=== PATIENT | female | born 1955 | race African-American/Black ===

== ENCOUNTER 2019-11-12 13:07 | Inpatient (IN) | payer OTHER ==
[2019-11-12 15:34] VITALS: BMI 26.5
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
[2019-11-12] MEDS ORDERED: MAGNESIUM HYDROX 2400MG/30ML ORAL SUSPENSION 30 ML CUP PO PRN (16:27)
[2019-11-12] MEDS ORDERED: MAG HYDROX/AL HYDROX/SIMETH 30 ML UNIT-DOSE CUP PO PRN (16:27)
[2019-11-12] MEDS ORDERED: BISMUTH SUBSALICYLATE 524 MG/30 ML UD PO PRN (16:27)
[2019-11-12] MEDS ORDERED: ONDANSETRON *ODT* 4 MG TABLET SL PRN (16:27)
[2019-11-12] MEDS ORDERED: MAGNESIUM CITRATE 300 ML BOTTLE PO PRN (16:27)
[2019-11-12] MEDS ORDERED: ACETAMINOPHEN 325 MG TABLET (FP) PO PRN (16:27)
[2019-11-12] MEDS ORDERED: MENTHOL/PHENOL 1 EACH UD MM PRN (16:27)
[2019-11-12] MEDS ORDERED: clonazePAM 0.5 MG TABLET PO PRN (16:29)
[2019-11-12] MEDS ORDERED: cloNIDine HCL 0.1 MG TABLET PO PRN (16:29)
[2019-11-13] MEDS: THIAMINE HCL 100 MG TABLET (FP) PO SCH ×2 (03:36→22:06)
[2019-11-13] MEDS: ACETAMINOPHEN 325 MG TABLET (FP) PO PRN ×2 (03:47→22:07)
--- NOTE | 2019-11-13 10:03 | PN ---
BHS COWS - Scale Resting Pulse: 2= [place] 101-120 Sweatin= Chills/Flushing Restless Observation: 0= Sits Still Pupil Size: 1= Pupils >than Normal Bone or Joint Aches: 0= None Runny Nose/ Eye Tearin= None GI Upset > 30mins: 0= None Tremor Observation of Outstretched Hands: 2= Slight Tremor Visible Yawning Observation: 0= None Anxiety or Irritability: 2=Irritable/Anxious Goose Flesh Skin: 3=Piloerection COWS Score: 11 BHS Progress Note (SOAP) Subjective: 64 years old female admitted on 11/12/19 for opiate withdrawal sx requests methadone detox regiment and prefers in patient rehab after the detox patient is anxious with pupil dilation begin methadone detox regiment discontinue klonopin continue clonidine prn Objective: 11/13/19 10:14 Vital Signs Temperature 97.9 F 11/13/19 08:39 Pulse Rate 101 H 11/13/19 08:39 Respiratory Rate 20 11/13/19 08:39 Blood Pressure 136/79 11/13/19 08:39 O2 Sat by Pulse Oximetry (%) 11/13/19 10:14 lab pending Assessment: 11/13/19 10:14 opiate withdrawal Plan: methadone regiment with clonidine 0.1mg prn
[2019-11-13] MEDS: NICOTINE 7 MG/24 HOURS TOPICAL PATCH TD SCH (10:12)
[2019-11-13] MEDS: METHOCARBAMOL 500 MG TABLET PO PRN ×2 (10:12→17:52)
[2019-11-13] MEDS: PRENATAL VITAMINS W/ FOLIC ACID TABLET (FP) PO SCH (10:12)
[2019-11-13 10:16] LABS: HEMATOCRIT 36.8 % (32.4-45.2); HEMOGLOBIN 12.5 GM/dL (10.7-15.3); MCHC 33.9 g/dl (32.0-36.0); MEAN CELL VOLUME 88.5 fl (80-96); MEAN PLT VOLUME 7.7 fl (7.5-11.1); PLATELET COUNT 293 K/MM3 (134-434); RBC 4.16 M/mm3 (3.60-5.2); RDW 14.1 % (11.6-15.6); WHITE BLOOD COUNT 5.9 K/mm3 (4.0-10.0)
[2019-11-13 10:24] LABS: ALBUMIN 3.9 g/dl (3.4-5.0); BILIRUBIN,TOTAL 0.5 mg/dL (0.2-1); BLOOD UREA NITROGEN 7.3 mg/dL (7-18); CALCIUM 9.2 mg/dL (8.5-10.1); CREATININE 0.6 mg/dL (0.55-1.3); POTASSIUM 4.2 mmol/L (3.5-5.1); TOT PROT 7.2 g/dl (6.4-8.2)
[2019-11-13] MEDS ORDERED: METHADONE HCL 10 MG TABLET (FOR DETOX USE ONLY) PO ONE (11:30)
--- NOTE | 2019-11-13 12:43 | EKG ---
Test Reason : Blood Pressure : / mmHG Vent. Rate : 090 BPM Atrial Rate : 090 BPM P-R Int : 176 ms QRS Dur : 098 ms QT Int : 366 ms P-R-T Axes : 075 051 065 degrees QTc Int : 447 ms NORMAL SINUS RHYTHM INCOMPLETE RIGHT BUNDLE BRANCH BLOCK NONSPECIFIC T WAVE ABNORMALITY ABNORMAL ECG NO PREVIOUS ECGS AVAILABLE Confirmed by SARA BONE MD (2013) on 11/13/2019 12:42:59 PM Referred By: JENNA Confirmed By:SARA BONE MD
[2019-11-13] MEDS: hydrOXYzine PAMOATE 25 MG CAPSULE (FP) PO PRN (17:50)
[2019-11-13] MEDS: NAPROXEN 375 MG TABLET PO PRN (20:33)
[2019-11-13] MEDS: MELATONIN 5 MG TABLETS PO PRN (22:06)
[2019-11-14] MEDS ORDERED: METHADONE HCL 10 MG TABLET (FOR DETOX USE ONLY) ONE (09:39)
[2019-11-14] MEDS ORDERED: METHADONE HCL 5 MG TABLET (FOR DETOX USE ONLY) ONE (09:40)
[2019-11-14] MEDS: NAPROXEN 375 MG TABLET PO PRN (09:58)
[2019-11-14] MEDS: PRENATAL VITAMINS W/ FOLIC ACID TABLET (FP) PO SCH (09:58)
[2019-11-14] MEDS: METHOCARBAMOL 500 MG TABLET PO PRN ×2 (09:59→22:00)
[2019-11-14] MEDS: NICOTINE 7 MG/24 HOURS TOPICAL PATCH TD SCH (09:59)
[2019-11-14] MEDS ORDERED: METHADONE (DETOX) 10 MG, METHADONE (DETOX) 5 MG PO ONE (10:00)
--- NOTE | 2019-11-14 12:13 | PN ---
S COWS - Scale Resting Pulse: 2= [place] 101-120 Sweatin= No chills or Flushing Restless Observation: 1= Difficult to Sit Still Pupil Size: 0= Normal to Room Light Bone or Joint Aches: 4=Acute Joint/Muscle Pain Runny Nose/ Eye Tearin= Nasal Congestion GI Upset > 30mins: 1= Stomach Cramp Tremor Observation of Outstretched Hands: 1= Tremor [place], Not Seen Yawning Observation: 0= None Anxiety or Irritability: 0= None Goose Flesh Skin: 0=Smooth Skin COWS Score: 10 S Progress Note (SOAP) Subjective: Vitals: BP: 120/81 P;108 R:18 T:97.0 Laboratory 11/13/19 11/13/19 11/13/19 08:00 08:00 08:00 WBC 5.9 K/mm3 K/mm3 (4.0-10.0) RBC 4.16 M/mm3 M/mm3 (3.60-5.2) Hgb 12.5 GM/dL GM/dL (10.7-15.3) Hct 36.8 % % (32.4-45.2) MCV 88.5 fl fl (80-96) MCH 30.0 pg pg (25.7-33.7) MCHC 33.9 g/dl g/dl (32.0-36.0) RDW 14.1 % % (11.6-15.6) Plt Count 293 K/MM3 K/MM3 (134-434) MPV 7.7 fl fl (7.5-11.1) Sodium 140 mmol/L mmol/L (136-145) Potassium 4.2 mmol/L mmol/L (3.5-5.1) Chloride 108 mmol/L H mmol/L (98-107) Carbon Dioxide 27 mmol/L mmol/L (21-32) Anion Gap 4 MMOL/L L MMOL/L (8-16) BUN 7.3 mg/dL mg/dL (7-18) Creatinine 0.6 mg/dL mg/dL (0.55-1.3) Est GFR (CKD-EPI)AfAm 112.43 Est GFR (CKD-EPI)NonAf 97.01 Random Glucose 88 mg/dL mg/dL (74-106) Calcium 9.2 mg/dL mg/dL (8.5-10.1) Total Bilirubin 0.5 mg/dL mg/dL (0.2-1) AST 19 U/L U/L (15-37) ALT 26 U/L U/L (13-61) Alkaline Phosphatase 70 U/L U/L (45-117) Total Protein 7.2 g/dl g/dl (6.4-8.2) Albumin 3.9 g/dl g/dl (3.4-5.0) RPR Titer Nonreactive (NONREACTIVE) Objective: 11/14/19 12:12 Patient seen in bed sleepy some continued withdrawals symptoms elicited. Assessment: 11/14/19 12:12 1. Heroin Dependence with withdrawals 2. Abnormal labs noted 11/14/19 12:15 Plan: 1. Continue methadone detox protocol. 2. Abnormal labs consistent with poor nutrition and dehydration. Will encourage po hydration and proper nutrition. Add ensure to meals. Dr. Hawkins
[2019-11-14] MEDS: THIAMINE HCL 100 MG TABLET (FP) PO SCH (22:00)
[2019-11-14] MEDS: hydrOXYzine PAMOATE 25 MG CAPSULE (FP) PO PRN (22:01)
[2019-11-14] MEDS: MELATONIN 5 MG TABLETS PO PRN (22:01)
[2019-11-15] MEDS ORDERED: METHADONE HCL 10 MG TABLET (FOR DETOX USE ONLY) PO ONE (10:00)
[2019-11-15] MEDS: PRENATAL VITAMINS W/ FOLIC ACID TABLET (FP) PO SCH (10:26)
[2019-11-15] MEDS: NICOTINE 7 MG/24 HOURS TOPICAL PATCH TD SCH (10:28)
--- NOTE | 2019-11-15 13:19 | PN ---
BHS COWS - Scale Resting Pulse: 1= [place] 81-100 Sweatin= No chills or Flushing Restless Observation: 0= Sits Still Pupil Size: 0= Normal to Room Light Bone or Joint Aches: 2= Severe Diffuse Aches Runny Nose/ Eye Tearin= None GI Upset > 30mins: 0= None Tremor Observation of Outstretched Hands: 0= None Yawning Observation: 0= None Anxiety or Irritability: 2=Irritable/Anxious Goose Flesh Skin: 0=Smooth Skin COWS Score: 5 BHS Progress Note (SOAP) Subjective: c/o mild withdrawal symptoms. Objective: 11/15/19 13:17 Vital Signs 11/15/19 11/15/19 06:55 08:49 Temperature 98.1 F 98.4 F Pulse Rate 90 109 H Respiratory 18 16 Rate Blood Pressure 116/76 125/72 Laboratory Last Values WBC 5.9 K/mm3 (4.0-10.0) 11/13/19 08:00 RBC 4.16 M/mm3 (3.60-5.2) 11/13/19 08:00 Hgb 12.5 GM/dL (10.7-15.3) 11/13/19 08:00 Hct 36.8 % (32.4-45.2) 11/13/19 08:00 MCV 88.5 fl (80-96) 11/13/19 08:00 MCH 30.0 pg (25.7-33.7) 11/13/19 08:00 MCHC 33.9 g/dl (32.0-36.0) 11/13/19 08:00 RDW 14.1 % (11.6-15.6) 11/13/19 08:00 Plt Count 293 K/MM3 (134-434) 11/13/19 08:00 MPV 7.7 fl (7.5-11.1) 11/13/19 08:00 Sodium 140 mmol/L (136-145) 11/13/19 08:00 Potassium 4.2 mmol/L (3.5-5.1) 11/13/19 08:00 Chloride 108 mmol/L (98-107) H 11/13/19 08:00 Carbon Dioxide 27 mmol/L (21-32) 11/13/19 08:00 Anion Gap 4 MMOL/L (8-16) L 11/13/19 08:00 BUN 7.3 mg/dL (7-18) 11/13/19 08:00 Creatinine 0.6 mg/dL (0.55-1.3) 11/13/19 08:00 Est GFR (CKD-EPI)AfAm 112.43 11/13/19 08:00 Est GFR (CKD-EPI)NonAf 97.01 11/13/19 08:00 Random Glucose 88 mg/dL (74-106) 11/13/19 08:00 Calcium 9.2 mg/dL (8.5-10.1) 11/13/19 08:00 Total Bilirubin 0.5 mg/dL (0.2-1) 11/13/19 08:00 AST 19 U/L (15-37) 11/13/19 08:00 ALT 26 U/L (13-61) 11/13/19 08:00 Alkaline Phosphatase 70 U/L (45-117) 11/13/19 08:00 Total Protein 7.2 g/dl (6.4-8.2) 11/13/19 08:00 Albumin 3.9 g/dl (3.4-5.0) 11/13/19 08:00 RPR Titer Nonreactive (NONREACTIVE) 11/13/19 08:00 Labs noted. Assessment: 11/15/19 13:18 AOX3, in no acute respiratory distress. Full ROM, ambulating in the unit. Mild Withdrawal symptoms. For d/c tomorrow. Plan: continue detox. D/c in AM.
[2019-11-15] MEDS: NAPROXEN 375 MG TABLET PO PRN ×2 (13:44→20:33)
[2019-11-15] MEDS: METHOCARBAMOL 500 MG TABLET PO PRN (20:34)
[2019-11-15] MEDS: MELATONIN 5 MG TABLETS PO PRN (22:25)
[2019-11-15] MEDS: THIAMINE HCL 100 MG TABLET (FP) PO SCH (22:25)
[2019-11-15] MEDS: ACETAMINOPHEN 325 MG TABLET (FP) PO PRN (22:26)
[2019-11-16] MEDS ORDERED: METHADONE HCL 5 MG TABLET (FOR DETOX USE ONLY) PO ONE (05:00)
[2019-11-16 06:35] VITALS: BP 105/68; PULSE 86; TEMP 98.1
--- NOTE | 2019-11-16 09:41 | DS ---
[facility] Detox Discharge Summary Admission Date: 11/12/19 Discharge Date: 11/16/19 - History Present History: Opioid Dependence Additional Comments: 64 years old female admitted on 11/12/19 for opiate withdrawal sx management [facility] patient has completed the detox regiment and tolerated well alert oriented x 3 cardiac regular rate rhythm history of right bundle branch block as indicated in ekg patient is asymptomatic at this time no chest pain no shortness of breath no dizziness ambulating with walker steady and slow respiratory clear lungs bilaterally on auscultation skin warm and dry - Physical Exam Results Vital Signs: Vital Signs Temperature 98.1 F 11/16/19 06:34 Pulse Rate 86 11/16/19 06:34 Respiratory Rate 16 11/16/19 06:34 Blood Pressure 105/68 11/16/19 06:34 O2 Sat by Pulse Oximetry (%) Pertinent Admission Physical Exam Findings: opiate withdrawal Laboratory Last Values WBC 5.9 K/mm3 (4.0-10.0) 11/13/19 08:00 RBC 4.16 M/mm3 (3.60-5.2) 11/13/19 08:00 Hgb 12.5 GM/dL (10.7-15.3) 11/13/19 08:00 Hct 36.8 % (32.4-45.2) 11/13/19 08:00 MCV 88.5 fl (80-96) 11/13/19 08:00 MCH 30.0 pg (25.7-33.7) 11/13/19 08:00 MCHC 33.9 g/dl (32.0-36.0) 11/13/19 08:00 RDW 14.1 % (11.6-15.6) 11/13/19 08:00 Plt Count 293 K/MM3 (134-434) 11/13/19 08:00 MPV 7.7 fl (7.5-11.1) 11/13/19 08:00 Sodium 140 mmol/L (136-145) 11/13/19 08:00 Potassium 4.2 mmol/L (3.5-5.1) 11/13/19 08:00 Chloride 108 mmol/L (98-107) H 11/13/19 08:00 Carbon Dioxide 27 mmol/L (21-32) 11/13/19 08:00 Anion Gap 4 MMOL/L (8-16) L 11/13/19 08:00 BUN 7.3 mg/dL (7-18) 11/13/19 08:00 Creatinine 0.6 mg/dL (0.55-1.3) 11/13/19 08:00 Est GFR (CKD-EPI)AfAm 112.43 11/13/19 08:00 Est GFR (CKD-EPI)NonAf 97.01 11/13/19 08:00 Random Glucose 88 mg/dL (74-106) 11/13/19 08:00 Calcium 9.2 mg/dL (8.5-10.1) 11/13/19 08:00 Total Bilirubin 0.5 mg/dL (0.2-1) 11/13/19 08:00 AST 19 U/L (15-37) 11/13/19 08:00 ALT 26 U/L (13-61) 11/13/19 08:00 Alkaline Phosphatase 70 U/L (45-117) 11/13/19 08:00 Total Protein 7.2 g/dl (6.4-8.2) 11/13/19 08:00 Albumin 3.9 g/dl (3.4-5.0) 11/13/19 08:00 RPR Titer Nonreactive (NONREACTIVE) 11/13/19 08:00 lab noted - Treatment Hospital Course: Detox Protocol Followed, Detoxed Safely, Responded well, Discharged Condition Good, Rehab Referral Accepted Patient has Accepted [facility] - Medication Discharge Medications: Ambulatory Orders Cyclobenzaprine HCl 10 mg PO BID PRN 11/12/19 Naproxen [Naprosyn -] 375 mg PO TID PRN 11/12/19 Oxycodone HCl/Acetaminophen [Percocet 10-325 mg Tablet] 1 each PO TID 11/12/19 - Diagnosis (1) Walker as ambulation aid Status: Chronic (2) Opioid use disorder Status: Chronic - AMA Did Patient Leave Against Medical Advice: No COWS (PN) - Opiate Withdrawal Resting Pulse: 1= PA 81-100 Sweatin= No chills or Flushing Restless Observation: 0= Sits Still Pupil Size: 0= Normal to Room Light Bone or Joint Aches: 0= None Runny Nose/ Eye Tearin= Nasal Congestion GI Upset > 30mins: 0= None Tremor Observation of Outstretched Hands: 0= None Yawning Observation: 1= 1-2x During Session Anxiety or Irritability: 0= None Goose Flesh Skin: 0=Smooth Skin COWS Score: 3
== END 2019-11-16 10:34 | disposition home or self-care (01) | DRG 897 ==
LOC: YASAS 13:07 → Y3N 17:53
PROVIDERS: ADMIT Allergy & Immunology; ATTEND Allergy & Immunology
PROC: HZ2ZZZZ Detoxification Services for Substance Abuse Treatment (ICD-10-PCS; principal; 2019-11-12)
DX: F11.23 Opioid dependence with withdrawal (principal); I45.10 Unspecified right bundle-branch block; E07.89 Other specified disorders of thyroid; M06.9 Rheumatoid arthritis, unspecified; M79.7 Fibromyalgia; R26.2 Difficulty in walking, not elsewhere classified; Z99.89 Dependence on other enabling machines and devices
CPT/HCPCS: 36415; 80053; 85027; 86593; 93005; 93010

== ENCOUNTER 2019-11-12 19:06 | Emergency (ER) | payer OTHER ==
[2019-11-12 19:11] VITALS: BMI 26.5
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
[2019-11-12] MEDS ORDERED: LIDOCAINE 5% TOPICAL PATCH TP ONE (19:57)
[2019-11-12] MEDS ORDERED: cloNIDine HCL 0.1 MG TABLET PO ONE ×2 (19:57→20:50)
[2019-11-12] MEDS ORDERED: DICYCLOMINE HCL 20 MG TABLET PO ONE (19:57)
[2019-11-12] MEDS ORDERED: ACETAMINOPHEN 325 MG TABLET (FP) PO ONE (20:35)
--- NOTE | 2019-11-12 20:40 | PDOC ---
Documentation entered by Kinga Madrigal SCRIBE, acting as scribe for Jamee Jacobson DO. Jamee Jacobson, : This documentation has been prepared by the hamilton, Kinga Madrigal SCRIBE, under my direction and personally reviewed by me in its entirety. I confirm that the documentation accurately reflects all work, treatment, procedures, and medical decision making performed by me. Attending Attestation - Resident Resident Name: KasiangelinaColton - ED Attending Attestation I have performed the following: I have examined & evaluated the patient, The case was reviewed & discussed with the resident, I agree w/resident's findings & plan, Exceptions are as noted - HPI HPI: 11/12/19 19:53 The patient is a 64 year old female with a significant PMH of chronic back pain , RA, fibromyalgia, lupus dx 2012, and percocet use who presents to the emergency department [facility] from [facility] for 1 episode of isolated L sided, squeezing chest pain that occurred 10/30/2019. Pt states she endorsed a similar episode 1 year ago. Pt denies any chest pain currently or in the past week. Per [facility], the patient had another episode of chest pain there. The patient denies chest pain, shortness of breath, headache and dizziness. Denies fever, chills, cough, nausea, vomiting, diarrhea and constipation. Denies dysuria, frequency, urgency and hematuria. Allergies: NKDA Past surgical history: appy , lumbar spine surgery 1997 and 2005 PCP: Naun Schwartz - Physicial Exam PE: 11/12/19 19:54 GENERAL: Awake, alert, and fully oriented, in no acute distress HEAD: No signs of trauma EYES: PERRLA, EOMI, sclera anicteric, conjunctiva clear ENT: Auricles normal inspection, hearing grossly normal, nares patent, oropharynx clear without exudates. Moist mucosa NECK: Normal ROM, supple, no lymphadenopathy, JVD, or masses LUNGS: Breath sounds equal, clear to auscultation bilaterally. No wheezes, and no crackles HEART: Regular rate and rhythm, normal S1 and S2, no murmurs, rubs or gallops ABDOMEN: Soft, nontender, normoactive bowel sounds. No guarding, no rebound. No masses EXTREMITIES: Normal range of motion, no edema. No clubbing or cyanosis. No cords, erythema, or tenderness NEUROLOGICAL: Cranial nerves II through XII grossly intact. Normal speech, normal gait SKIN: +piloerection. Warm, Dry, normal turgor, no rashes or lesions noted. - Medical Decision Making 11/12/19 20:36 a/p: 64yo female who went to [facility] today for detox from Oxycodone - pt taking 4 - 10/325mg tabs daily for chronic pain -pt states she wants to stop taking oxycodone and wants to get off opiates -pt went to [facility] today for detox -pt states 10d ago she had some chest pressure -this was mentioned at detox and [facility] sent her for further eval -pt states she has not had another episode of cp since then, denies cp today -pt states she wants to get detox from opiates and her last use was htis am and she is c/o feeling abd cramping, piloerection and withdrawal symptoms -no cp/sob, no n/v -will send labs, ekg, cxr -if trop neg will be medically clear to return to detox 11/12/19 20:59 cxr clear 11/12/19 21:37 trop neg labs reviewed pt medically clear for transfer back to detox at [facility] case discussed with the provider at [facility] who is accepted back to [facility] for detox
[2019-11-12 21:13] LABS: BASO % 0.6 % (0-2.0); EOS % 0.9 % (0-4.5); HEMATOCRIT 38.9 % (32.4-45.2); HEMOGLOBIN 13.1 GM/dL (10.7-15.3); LYMPH % 38.9 % (8-40); MCH 30.2 pg (25.7-33.7); MCHC 33.7 g/dl (32.0-36.0); MEAN CELL VOLUME 89.7 fl (80-96); MEAN PLT VOLUME 7.8 fl (7.5-11.1); MONO % 7.8 % (3.8-10.2); NEUT % 51.8 % (42.8-82.8); PLATELET COUNT 315 K/MM3 (134-434); RBC 4.34 M/mm3 (3.60-5.2); RDW 13.9 % (11.6-15.6); WHITE BLOOD COUNT 7.1 K/mm3 (4.0-10.0)
[2019-11-12] MEDS ORDERED: DICYCLOMINE HCL 10 MG CAPSULE ONE (21:22)
[2019-11-12] MEDS ORDERED: LIDOCAINE 5% TOPICAL PATCH ONE (21:22)
[2019-11-12] MEDS ORDERED: ACETAMINOPHEN 325 MG TABLET (FP) ONE (21:22)
[2019-11-12] MEDS ORDERED: cloNIDine HCL 0.1 MG TABLET ONE (21:22)
[2019-11-12 21:27] LABS: INR 1.01 (0.83-1.09); PROTHROMBIN TIME (PATIENT) 11.9 SEC (9.7-13.0)
[2019-11-12 21:29] LABS: ACTIVATED PTT 45.1 SECONDS (25.2-36.5)
[2019-11-12 21:35] LABS: ALBUMIN 4.3 g/dl (3.4-5.0); ALK PHOS 81 U/L (45-117); ANION GAP 7 MMOL/L (8-16); BILIRUBIN,TOTAL 0.3 mg/dL (0.2-1); BLOOD UREA NITROGEN 5.2 mg/dL (7-18); CALCIUM 9.4 mg/dL (8.5-10.1); CHLORIDE 109 mmol/L (98-107); CO2 26 mmol/L (21-32); CREATININE 0.6 mg/dL (0.55-1.3); GLUCOSE,RANDOM 91 mg/dL (74-106); MAGNESIUM 2.4 mg/dL (1.8-2.4); POTASSIUM 4.4 mmol/L (3.5-5.1); SGOT/AST 24 U/L (15-37); SGPT/ALT 29 U/L (13-61); SODIUM 141 mmol/L (136-145); TOT PROT 7.7 g/dl (6.4-8.2)
[2019-11-12] MEDS ORDERED: LIDOCAINE PATCH REMOVAL MC SCH (22:00)
[2019-11-13 01:27] VITALS: BP 121/74; PULSE 96; TEMP 98.3
--- NOTE | 2019-11-13 12:40 | EKG ---
Test Reason : Blood Pressure : / mmHG Vent. Rate : 082 BPM Atrial Rate : 082 BPM P-R Int : 180 ms QRS Dur : 090 ms QT Int : 388 ms P-R-T Axes : 067 044 055 degrees QTc Int : 453 ms POOR DATA QUALITY, INTERPRETATION MAY BE ADVERSELY AFFECTED NORMAL SINUS RHYTHM NORMAL ECG WHEN COMPARED WITH ECG OF 12-NOV-2019 22:00, CRITERIA FOR SEPTAL INFARCT ARE NO LONGER PRESENT Confirmed by SARA BONE MD ([id number]) on 11/13/2019 12:39:27 PM Referred By: Confirmed By:SARA BONE MD
--- NOTE | 2019-11-13 12:40 | EKG ---
Test Reason : Blood Pressure : / mmHG Vent. Rate : 085 BPM Atrial Rate : 085 BPM P-R Int : 186 ms QRS Dur : 082 ms QT Int : 358 ms P-R-T Axes : 061 045 053 degrees QTc Int : 426 ms NORMAL SINUS RHYTHM SEPTAL INFARCT , AGE UNDETERMINED ABNORMAL ECG WHEN COMPARED WITH ECG OF 12-NOV-2019 17:47, SEPTAL INFARCT IS NOW PRESENT Confirmed by SMITHA SORIANO, SARA ([id number]) on 11/13/2019 12:39:33 PM Referred By: Confirmed By:SARA BONE MD
== END 2019-11-13 02:15 | disposition short-term general hospital (02) ==
LOC: JER 19:06
DX: F11.99 Opioid use, unspecified with unspecified opioid-induced disorder (principal); F17.210 Nicotine dependence, cigarettes, uncomplicated; Z98.1 Arthrodesis status
CPT/HCPCS: 36415; 71045-TC-FY; 80053; 82550; 83735; 84484; 85025; 85610; 85730; 93005; 93010; 99283-25; J0735

== ENCOUNTER 2021-05-11 11:39 | Inpatient (IN) | payer OTHER ==
[2021-05-11] MEDS ORDERED: NICOTINE POLACRILEX 2 MG GUM BUC PRN (13:40)
[2021-05-11] MEDS ORDERED: cloNIDine HCL 0.1 MG TABLET PO PRN (13:40)
[2021-05-11] MEDS ORDERED: ACETAMINOPHEN 325 MG TABLET (FP) PO PRN (13:40)
[2021-05-11] MEDS ORDERED: IBUPROFEN 400 MG TABLET (FP) PO PRN (13:40)
[2021-05-11] MEDS ORDERED: ONDANSETRON *ODT* 4 MG TABLET SL PRN (13:40)
[2021-05-11] MEDS ORDERED: MAGNESIUM CITRATE 300 ML BOTTLE PO PRN (13:40)
[2021-05-11] MEDS ORDERED: MENTHOL/PHENOL 1 EACH UD MM PRN (13:40)
[2021-05-11] MEDS ORDERED: BISMUTH SUBSALICYLATE 524 MG/30 ML PO PRN (13:40)
[2021-05-11] MEDS ORDERED: NAPROXEN 500 MG TABLET PO PRN (13:42)
[2021-05-11 14:28] VITALS: BMI 24.6
[2021-05-11] MEDS ORDERED: methaDONE HCL 10 MG TABLET (FOR DETOX USE ONLY) PO ONE (15:30)
[2021-05-11 15:50] LABS: CALCIUM 9.3 mg/dL (8.5-10.1); HEMATOCRIT 39.6 % (32.4-45.2); HEMOGLOBIN 13.4 GM/dL (10.7-15.3); MCH 31.1 pg (25.7-33.7); MCHC 33.9 g/dl (32.0-36.0); MEAN CELL VOLUME 91.8 fl (80-96); MEAN PLT VOLUME 7.5 fl (7.5-11.1); PLATELET COUNT 244 10^3/uL (134-434); RBC 4.32 M/mm3 (3.60-5.2); RDW 14.6 % (11.6-15.6); WHITE BLOOD COUNT 6.7 K/mm3 (4.0-10.0)
[2021-05-11 15:51] LABS: ALBUMIN 4.3 g/dl (3.4-5.0); BLOOD UREA NITROGEN 12.1 mg/dL (7-18)
[2021-05-11 15:54] LABS: CREATININE 0.8 mg/dL (0.55-1.3)
[2021-05-11 15:55] LABS: BILIRUBIN,TOTAL 0.5 mg/dL (0.2-1)
[2021-05-11 15:56] LABS: TOT PROT 7.7 g/dl (6.4-8.2)
[2021-05-11] MEDS: NICOTINE 14 MG/24 HOURS TOPICAL PATCH TD SCH (16:18)
[2021-05-11] MEDS: PRENATAL VITAMINS W/ FOLIC ACID TABLET (FP) PO SCH (16:18)
[2021-05-11] MEDS: hydrOXYzine PAMOATE 25 MG CAPSULE (FP) PO SCH ×3 (16:18→22:12)
[2021-05-11] MEDS: METHOCARBAMOL 500 MG TABLET PO PRN (20:18)
[2021-05-11] MEDS: THIAMINE HCL 100 MG TABLET (FP) PO SCH (22:12)
[2021-05-11] MEDS: MELATONIN 5 MG TABLETS PO SCH (22:12)
[2021-05-11] MEDS: ACETAMINOPHEN 325 MG TABLET (FP) PO PRN (22:14)
[2021-05-12] MEDS: hydrOXYzine PAMOATE 25 MG CAPSULE (FP) PO SCH ×3 (06:46→13:29)
[2021-05-12] MEDS ORDERED: methaDONE HCL 10 MG TABLET (FOR DETOX USE ONLY) ONE (09:13)
[2021-05-12] MEDS: METHOCARBAMOL 500 MG TABLET PO PRN ×2 (09:54→17:42)
[2021-05-12] MEDS: PRENATAL VITAMINS W/ FOLIC ACID TABLET (FP) PO SCH (09:55)
[2021-05-12] MEDS: NICOTINE 14 MG/24 HOURS TOPICAL PATCH TD SCH (09:55)
[2021-05-12] MEDS: ACETAMINOPHEN 325 MG TABLET (FP) PO PRN ×2 (09:55→22:38)
[2021-05-12] MEDS: MAG HYDROX/AL HYDROX/SIMETH 30 ML UNIT-DOSE CUP PO PRN ×2 (15:02→20:50)
[2021-05-12] MEDS: MAGNESIUM HYDROX 2400MG/30ML ORAL SUSPENSION 30 ML CUP PO PRN (17:42)
[2021-05-12] MEDS: THIAMINE HCL 100 MG TABLET (FP) PO SCH (22:37)
[2021-05-12] MEDS: MELATONIN 5 MG TABLETS PO SCH (22:38)
[2021-05-13] MEDS ORDERED: methaDONE HCL 10 MG TABLET (FOR DETOX USE ONLY) PO ONE (10:00)
[2021-05-13] MEDS: diazePAM 5 MG TABLET PO PRN ×4 (10:18→22:50)
[2021-05-13] MEDS: amLODIPine BESYLATE 10 MG TABLET (FP) PO SCH (10:19)
[2021-05-13] MEDS: PRENATAL VITAMINS W/ FOLIC ACID TABLET (FP) PO SCH (10:19)
[2021-05-13] MEDS: NICOTINE 14 MG/24 HOURS TOPICAL PATCH TD SCH (10:19)
[2021-05-13] MEDS: ACETAMINOPHEN 325 MG TABLET (FP) PO PRN (13:28)
[2021-05-13] MEDS: CYCLOBENZAPRINE HCL 10 MG TABLET (FP) PO PRN (13:28)
[2021-05-13] MEDS: NICOTINE 10 MG CARTRIDGE (INHALER) IH PRN ×2 (13:37→17:46)
[2021-05-13] MEDS: MAGNESIUM HYDROX 2400MG/30ML ORAL SUSPENSION 30 ML CUP PO PRN (18:22)
[2021-05-13] MEDS: MELATONIN 5 MG TABLETS PO SCH (21:20)
[2021-05-13] MEDS: THIAMINE HCL 100 MG TABLET (FP) PO SCH (21:20)
[2021-05-14] MEDS: NICOTINE 10 MG CARTRIDGE (INHALER) IH PRN ×4 (06:38→23:12)
[2021-05-14] MEDS ORDERED: methaDONE HCL 10 MG TABLET (FOR DETOX USE ONLY) ONE (09:09)
[2021-05-14] MEDS: NICOTINE 14 MG/24 HOURS TOPICAL PATCH TD SCH (10:28)
[2021-05-14] MEDS: PRENATAL VITAMINS W/ FOLIC ACID TABLET (FP) PO SCH (10:28)
[2021-05-14] MEDS: amLODIPine BESYLATE 10 MG TABLET (FP) PO SCH (10:31)
[2021-05-14] MEDS: CYCLOBENZAPRINE HCL 10 MG TABLET (FP) PO PRN ×2 (10:33→17:37)
[2021-05-14] MEDS: ACETAMINOPHEN 325 MG TABLET (FP) PO PRN ×2 (10:49→21:16)
[2021-05-14] MEDS: MAG HYDROX/AL HYDROX/SIMETH 30 ML UNIT-DOSE CUP PO PRN (17:37)
[2021-05-14] MEDS: diazePAM 5 MG TABLET PO PRN ×2 (17:37→23:12)
[2021-05-14] MEDS: THIAMINE HCL 100 MG TABLET (FP) PO SCH (21:17)
[2021-05-14] MEDS: MELATONIN 5 MG TABLETS PO SCH (21:18)
[2021-05-15] MEDS ORDERED: methaDONE HCL 10 MG TABLET (FOR DETOX USE ONLY) PO ONE (10:00)
[2021-05-15] MEDS: PRENATAL VITAMINS W/ FOLIC ACID TABLET (FP) PO SCH (10:02)
[2021-05-15] MEDS: NICOTINE 14 MG/24 HOURS TOPICAL PATCH TD SCH (10:02)
[2021-05-15] MEDS: CYCLOBENZAPRINE HCL 10 MG TABLET (FP) PO PRN ×2 (10:04→17:51)
[2021-05-15] MEDS: amLODIPine BESYLATE 10 MG TABLET (FP) PO SCH (10:05)
[2021-05-15] MEDS: NICOTINE 10 MG CARTRIDGE (INHALER) IH PRN ×3 (10:05→22:39)
[2021-05-15] MEDS ORDERED: cloNIDine HCL 0.1 MG TABLET PO PRN (10:35)
[2021-05-15] MEDS: hydrOXYzine PAMOATE 25 MG CAPSULE (FP) PO PRN ×2 (17:51→22:38)
[2021-05-15] MEDS: THIAMINE HCL 100 MG TABLET (FP) PO SCH (22:37)
[2021-05-15] MEDS: MELATONIN 5 MG TABLETS PO SCH (22:37)
[2021-05-16] MEDS: CYCLOBENZAPRINE HCL 10 MG TABLET (FP) PO PRN (08:58)
[2021-05-16] MEDS: hydrOXYzine PAMOATE 25 MG CAPSULE (FP) PO PRN (08:58)
[2021-05-16] MEDS: amLODIPine BESYLATE 10 MG TABLET (FP) PO SCH (08:59)
[2021-05-16] MEDS: PRENATAL VITAMINS W/ FOLIC ACID TABLET (FP) PO SCH (08:59)
[2021-05-16] MEDS: NICOTINE 14 MG/24 HOURS TOPICAL PATCH TD SCH (08:59)
[2021-05-16] MEDS: NICOTINE 10 MG CARTRIDGE (INHALER) IH PRN (09:00)
[2021-05-16] MEDS ORDERED: IBUPROFEN 600 MG TABLET (FP) PO PRN (11:36)
[2021-05-16] MEDS ORDERED: LIDOCAINE 5% TOPICAL PATCH TP SCH (11:45)
[2021-05-16] MEDS ORDERED: PANTOPRAZOLE 40 MG TABLET PO SCH (11:45)
[2021-05-16 13:07] VITALS: BP 119/76; PULSE 97; TEMP 98.1
[2021-05-16] MEDS ORDERED: LIDOCAINE PATCH REMOVAL MC SCH (22:00)
== END 2021-05-16 15:23 | disposition other institution (70) | DRG 897 ==
LOC: YASAS 11:39 → Y3N 14:24
PROVIDERS: ADMIT Allergy & Immunology; ATTEND Allergy & Immunology
PROC: HZ2ZZZZ Detoxification Services for Substance Abuse Treatment (ICD-10-PCS; principal; 2021-05-11)
DX: F11.23 Opioid dependence with withdrawal (principal); F14.20 Cocaine dependence, uncomplicated; F17.210 Nicotine dependence, cigarettes, uncomplicated; M54.42 Lumbago with sciatica, left side; G89.29 Other chronic pain; M06.9 Rheumatoid arthritis, unspecified; M21.371 Foot drop, right foot; R26.2 Difficulty in walking, not elsewhere classified; Z99.89 Dependence on other enabling machines and devices; Z98.1 Arthrodesis status
CPT/HCPCS: 36415; 80053; 85027; 86780; 93005; 93010; C9803; J0735; U0003; U0005

== ENCOUNTER 2021-05-16 15:18 | Inpatient (IN) | payer OTHER ==
[2021-05-16] MEDS ORDERED: LOPERAMIDE HCL 2 MG CAPSULE PO PRN (15:59)
[2021-05-16] MEDS ORDERED: ACETAMINOPHEN 325 MG TABLET (FP) PO PRN (15:59)
[2021-05-16] MEDS ORDERED: MAG HYDROX/AL HYDROX/SIMETH 30 ML UNIT-DOSE CUP PO PRN (15:59)
[2021-05-16] MEDS ORDERED: MAGNESIUM HYDROX 2400MG/30ML ORAL SUSPENSION 30 ML CUP PO PRN (15:59)
[2021-05-16] MEDS ORDERED: guaiFENesin 200 MG/10 ML 10 ML UNIT-DOSE CUPS PO PRN (15:59)
[2021-05-16] MEDS ORDERED: MAGNESIUM CITRATE 300 ML BOTTLE PO PRN (15:59)
[2021-05-16] MEDS ORDERED: P-EPHED 60MG/TRIPROLIDI 2.5MG TABLET PO PRN (15:59)
[2021-05-16] MEDS ORDERED: MENTHOL/PHENOL 1 EACH UD MM PRN (15:59)
[2021-05-16] MEDS: NICOTINE 10 MG CARTRIDGE (INHALER) IH PRN (18:48)
[2021-05-16] MEDS: THIAMINE HCL 100 MG TABLET (FP) PO SCH (21:13)
[2021-05-16] MEDS: MELATONIN 5 MG TABLETS PO SCH (21:13)
[2021-05-17] MEDS: CYCLOBENZAPRINE HCL 10 MG TABLET (FP) PO PRN ×2 (10:03→21:43)
[2021-05-17] MEDS: IBUPROFEN 400 MG TABLET (FP) PO PRN (10:03)
[2021-05-17] MEDS: PRENATAL VITAMINS W/ FOLIC ACID TABLET (FP) PO SCH (10:03)
[2021-05-17] MEDS: amLODIPine BESYLATE 10 MG TABLET (FP) PO SCH (10:03)
[2021-05-17] MEDS: hydrOXYzine PAMOATE 25 MG CAPSULE (FP) PO PRN ×2 (10:04→21:24)
[2021-05-17] MEDS: NICOTINE 10 MG CARTRIDGE (INHALER) IH PRN ×2 (10:05→21:27)
[2021-05-17] MEDS: MELATONIN 5 MG TABLETS PO SCH (21:23)
[2021-05-17] MEDS: THIAMINE HCL 100 MG TABLET (FP) PO SCH (21:23)
[2021-05-18] MEDS: NICOTINE 10 MG CARTRIDGE (INHALER) IH PRN ×3 (06:36→21:07)
[2021-05-18] MEDS: PRENATAL VITAMINS W/ FOLIC ACID TABLET (FP) PO SCH (10:13)
[2021-05-18] MEDS: hydrOXYzine PAMOATE 25 MG CAPSULE (FP) PO PRN (10:14)
[2021-05-18] MEDS: CYCLOBENZAPRINE HCL 10 MG TABLET (FP) PO PRN ×2 (10:14→21:06)
[2021-05-18] MEDS: amLODIPine BESYLATE 10 MG TABLET (FP) PO SCH (10:14)
[2021-05-18] MEDS: MELATONIN 5 MG TABLETS PO SCH (21:06)
[2021-05-18] MEDS: THIAMINE HCL 100 MG TABLET (FP) PO SCH (21:06)
[2021-05-19] MEDS: hydrOXYzine PAMOATE 25 MG CAPSULE (FP) PO PRN (10:20)
[2021-05-19] MEDS: amLODIPine BESYLATE 10 MG TABLET (FP) PO SCH (10:20)
[2021-05-19] MEDS: NICOTINE 10 MG CARTRIDGE (INHALER) IH PRN ×2 (10:20→21:32)
[2021-05-19] MEDS: PRENATAL VITAMINS W/ FOLIC ACID TABLET (FP) PO SCH (10:20)
[2021-05-19] MEDS: IBUPROFEN 400 MG TABLET (FP) PO PRN (10:21)
[2021-05-19] MEDS: MELATONIN 5 MG TABLETS PO SCH (21:31)
[2021-05-19] MEDS: THIAMINE HCL 100 MG TABLET (FP) PO SCH (21:31)
[2021-05-20 07:01] VITALS: TEMP 96.9
[2021-05-20 09:08] VITALS: BP 119/73; PULSE 107
[2021-05-20] MEDS: IBUPROFEN 400 MG TABLET (FP) PO PRN (09:51)
[2021-05-20] MEDS: PRENATAL VITAMINS W/ FOLIC ACID TABLET (FP) PO SCH (09:51)
[2021-05-20] MEDS: hydrOXYzine PAMOATE 25 MG CAPSULE (FP) PO PRN (09:51)
[2021-05-20] MEDS: amLODIPine BESYLATE 10 MG TABLET (FP) PO SCH (09:51)
[2021-05-20] MEDS: NICOTINE 10 MG CARTRIDGE (INHALER) IH PRN (09:52)
== END 2021-05-20 13:10 | disposition home or self-care (01) | DRG 895 ==
LOC: YASAS 15:18 → Y3W 15:23
PROVIDERS: ADMIT Allergy & Immunology; ATTEND Allergy & Immunology
PROC: HZ42ZZZ Group Counseling for Substance Abuse Treatment, Cognitive-Behavioral (ICD-10-PCS; principal; 2021-05-16)
DX: F11.20 Opioid dependence, uncomplicated (principal); F14.20 Cocaine dependence, uncomplicated; F17.210 Nicotine dependence, cigarettes, uncomplicated; M54.5 Low back pain; G89.29 Other chronic pain; M06.9 Rheumatoid arthritis, unspecified; M21.371 Foot drop, right foot; R26.2 Difficulty in walking, not elsewhere classified; Z99.89 Dependence on other enabling machines and devices; Z98.1 Arthrodesis status